=== PATIENT | male | born 1955 | race Caucasian/White ===

== ENCOUNTER → 2020-10-19 08:39 | Outpatient (BNVA) | payer OTHER, SELFPAY | PROVIDERS: Family Provider Nurse Practitioner Family; PCP Nurse Practitioner Family; Referring Provider Nurse Practitioner Family; Visit Provider Urology | DX: N52.9 Male erectile dysfunction, unspecified (principal); N52.1 Erectile dysfunction due to diseases classified elsewhere; E11.9 Type 2 diabetes mellitus without complications | CPT/HCPCS: 81003 ==